=== PATIENT | female | born 1980 | race Caucasian/White ===

== ENCOUNTER 2017-07-17 08:09 | Emergency (ER) | payer MEDICARE, MEDICAID ==
[~2017-07-17] VITALS: Ht 167.6 cm; Wt 120.8 kg
[2017-07-17 08:36] VITALS: BP 121/80
[2017-07-17] MEDS ORDERED: OMEP-110 PO (08:43)
[2017-07-17] MEDS ORDERED: LISI1TAB5 PO (08:43)
[2017-07-17] MEDS ORDERED: ASEN10TA9 PO (08:43)
[2017-07-17] MEDS ORDERED: ARIP300S3 IM (08:43)
== END 2017-07-17 09:25 | disposition home or self-care (01) ==
LOC: ED 09:19
DX: L29.9 Pruritus, unspecified (principal); F31.9 Bipolar disorder, unspecified; Z87.891 Personal history of nicotine dependence
CPT/HCPCS: 99281